=== PATIENT | male | born 1945 | race Caucasian/White ===

== ENCOUNTER 2021-09-13 15:29 | Outpatient (CLI) | payer OTHER, SELFPAY ==
--- NOTE | ~2021-09-13 | MR_ITS ---
EXAMINATION: MR lumbar spine wo con DATE: 09/13/2021 16:05 INDICATION: Lumbar radiculopathy TECHNIQUE: Magnetic resonance imaging (MRI) of the lumbar spine was performed without intravenous con trast. Sequences included sagittal T2-weighted FSE, sagittal T2-weighted FS FSE, sagittal T1-weighted FSE, and axial T2-weighted FSE. COMPARISON: None FINDINGS: A degree lumbar levocurvature. Sagittal alignment is normal. Vertebral body heights are normal. Disc desiccation mild disc height loss at L2-L3 L4 and with moderate disc height loss at L4-L5 and L5-S1. Fibrofatty degenerative endplate changes at the left side of the L4-L5 disc space. Marrow signal is o therwise unremarkable. The conus medullaris terminates at L2. There is normal signal in the caudal sp inal cord. Bilateral T2 hyperintense renal cysts, the largest on the right measuring 3.3 cm. Paravert ebral soft tissues are unremarkable. The following disc levels are specifically discussed: T12-L1: The disc does not extend beyond the endplate margin. There is no facet joint osteoarthritis. There is no neural foraminal stenosis. There is no central canal stenosis. L1-L2: Minimal disc protrusions at the bilateral foraminal zones. There is left and mild to moderate right facet joint osteoarthritis. There is mild bilateral neural foraminal stenosis. There is no cent ral canal stenosis. L2-L3: Disc is bulging with right foraminal zone annular fissure. There is mild right and mild to mod erate left facet joint osteoarthritis. There is mild left and mild to moderate right neural foraminal stenosis. There is mild central canal stenosis. L3-L4: Disc is mildly bulging. There is hypertrophy of the ligamentum flavum. There is moderate right and moderate to severe left facet joint osteoarthritis. There is moderate left and mild to moderate right neural foraminal stenosis. There is mild central canal stenosis. L4-L5: Disc is bulging with small osteophyte arising from the central posterior inferior endplate of L4. There is moderate to severe right and severe left facet joint osteoarthritis. There is altered le ft and mild to moderate right neural foraminal stenosis. There is mild central canal stenosis. L5-S1: Disc is bulging. There is mild to moderate bilateral facet joint osteoarthritis. There is mode rate left and mild to moderate right neural foraminal stenosis. There is no central canal stenosis. IMPRESSION: 1. Moderate lumbar spondylosis. Reviewed, dictated and finalized at location A.
== END 2021-09-13 15:30 | disposition home or self-care (01) ==
PROVIDERS: PCP Family Medicine
DX: S39.92XS Unspecified injury of lower back, sequela (principal); X58.XXXS Exposure to other specified factors, sequela; M47.896 Other spondylosis, lumbar region
CPT/HCPCS: 72148